=== PATIENT | male | born 1995 | race Caucasian/White ===

== ENCOUNTER 2024-08-21 14:08 | Emergency (ER) | payer OTHER ==
[~2024-08-21] VITALS: Ht 185.4 cm; Wt 80.7 kg
[2024-08-21] MEDS ORDERED: SULTRIDS PO (16:23)
== END 2024-08-21 16:30 | disposition home or self-care (01) ==
LOC: ER 14:08
DX: L02.811 Cutaneous abscess of head [any part, except face] (principal); F17.200 Nicotine dependence, unspecified, uncomplicated
CPT/HCPCS: 70450; 99283-25